=== PATIENT | female | born 1985 | race Asian ===

== ENCOUNTER 2017-05-06 10:15 | Emergency (ER) | payer OTHER ==
[~2017-05-06] VITALS: Ht 152.4 cm; Wt 50.0 kg
[2017-05-06 10:20] VITALS: BP 129/78; PULSE 74; RESP 18; TEMP 98.2; O2SAT 95
--- NOTE | 2017-05-06 12:47 | PD ---
HPI Chief Complaint: Cosmetician Problem/Complaint Time Seen by Provider: 12:44 Travel History International Travel<30 days: No Contact w/Intl Traveler<30days: No Traveled to known affect area: No History of Present Illness HPI 31-year-old female presents with history of endometriosis requiring surgery in 2013 with ongoing left lower quadrant pain with radiation into the left flank, as well as brown vaginal discharge for several weeks. Patient denies fever, chills, urinary symptoms, or changes in her bowels. Patient denies changes in sexual partners. She states this pain has been ongoing for some time. She states the discharge is been going on for some time. She states her last menstrual period ended on April 22. She states she is not . Pain is a 7 out of 10. She has no known drug allergies. Previously seen by Dr. Dwayne Braun, [employer], with similar complaints in March 2016. PFSH Past Medical History ?: Not LMP: 04/22/17 Social History Alcohol Use: No Tobacco Use: No Substance Use: No Allergies-Medications (Allergen,Severity, Reaction): Coded Allergies: No Known Allergies (Unverified Adverse Reaction, Unknown, 05/06/17) Reported Meds & Prescriptions Reported Meds & Active Scripts Active No Active Prescriptions or Reported Medications Review of Systems ROS Limitations: Poor Historian Except as stated in HPI: all other systems reviewed are Neg General / Constitutional: No: Fever Eyes: No: Visual changes HENT: No: Headaches Cardiovascular: No: Chest Pain or Discomfort Respiratory: No: Shortness of Breath Gastrointestinal: No: Abdominal Pain Genitourinary: Positive: Pelvic Pain, Flank Pain, Discharge, No: Urgency, Frequency, Dysuria, Vaginal Bleeding Musculoskeletal: No: Pain Skin: No Rash Neurologic: No: Weakness Psychiatric: No: Depression Endocrine: No: Polydipsia Hematologic/Lymphatic: No: Easy Bruising Physical Exam Narrative GENERAL: Patient ambulatory to the room without difficulty. She appears in no acute distress. SKIN: Warm and dry. Normal color. Normal turgor. HEAD: Atraumatic. Normocephalic. EYES: Pupils equal and round. No scleral icterus. No injection or drainage. ENT: No nasal bleeding or discharge. Mucous membranes pink and moist. NECK: Trachea midline. No JVD. CARDIOVASCULAR: Regular rate and rhythm. RESPIRATORY: No accessory muscle use. Clear to auscultation. Breath sounds equal bilaterally. GASTROINTESTINAL: Abdomen soft, non-tender, nondistended. Hepatic and splenic margins not palpable. PELVIC: Pelvic exam performed with nursing stock puller shows normal-appearing vagina without rash or lesion. There is a small amount of yellowish discharge noted in the vault. Cervix appeared normal without friability or lesion. Patient discomfort with palpation of the left suprapubic area, without palpable mass. Wet prep was sent to the lab. MUSCULOSKELETAL: Extremities without clubbing, cyanosis, or edema. No obvious deformities. NEUROLOGICAL: Awake and alert. No obvious cranial nerve deficits. Motor grossly within normal limits. Five out of 5 muscle strength in the arms and legs. Normal speech. PSYCHIATRIC: Appropriate mood and affect; insight and judgment normal. Data Data Last Documented VS Vital Signs Date Time Temp Pulse Resp B/P (MAP) Pulse Ox O2 Delivery O2 Flow Rate FiO2 05/06/17 13:13 98.5 63 17 110/60 (77) 100 Room Air Orders Orders Complete Blood Count With Diff (05/06/17 12:47) Comprehensive Metabolic Panel (05/06/17 12:47) Gc And Chlamydia Pcr (05/06/17 12:47) Wet Prep Profile (05/06/17 12:47) Urinalysis - C+S If Indicated (05/06/17 12:47) Ed Urine Pregnancytest Poc (05/06/17 13:08) Us Pelvis Comp Cosmetician/Non-Preg (05/06/17 13:48) Labs Laboratory Tests Test 05/06/17 13:15 05/06/17 13:30 05/06/17 13:45 White Blood Count 7.1 TH/MM3 Red Blood Count 4.75 MIL/MM3 Hemoglobin 11.8 GM/DL Hematocrit 36.3 % Mean Corpuscular Volume 76.5 FL Mean Corpuscular Hemoglobin 24.9 PG Mean Corpuscular Hemoglobin Concent 32.5 % Red Cell Distribution Width 15.6 % Platelet Count 290 TH/MM3 Mean Platelet Volume 8.6 FL Neutrophils (%) (Auto) 57.6 % Lymphocytes (%) (Auto) 29.4 % Monocytes (%) (Auto) 9.0 % Eosinophils (%) (Auto) 3.0 % Basophils (%) (Auto) 1.0 % Neutrophils # (Auto) 4.1 TH/MM3 Lymphocytes # (Auto) 2.1 TH/MM3 Monocytes # (Auto) 0.6 TH/MM3 Eosinophils # (Auto) 0.2 TH/MM3 Basophils # (Auto) 0.1 TH/MM3 CBC Comment DIFF FINAL Differential Comment Blood Urea Nitrogen 10 MG/DL Creatinine 0.90 MG/DL Random Glucose 81 MG/DL Total Protein 7.8 GM/DL Albumin 3.8 GM/DL Calcium Level 8.7 MG/DL Alkaline Phosphatase 60 U/L Aspartate Amino Transf (AST/SGOT) 11 U/L Alanine Aminotransferase (ALT/SGPT) 15 U/L Total Bilirubin 0.5 MG/DL Sodium Level 138 MEQ/L Potassium Level 3.4 MEQ/L Chloride Level 105 MEQ/L Carbon Dioxide Level 25.6 MEQ/L Anion Gap 7 MEQ/L Estimat Glomerular Filtration Rate 74 ML/MIN Urine Color LIGHT-YELLOW Urine Turbidity CLEAR Urine pH 5.5 Urine Specific [place] 1.009 Urine Protein NEG mg/dL Urine Glucose (UA) NEG mg/dL Urine Ketones NEG mg/dL Urine Occult Blood SMALL Urine Nitrite NEG Urine Bilirubin NEG Urine Urobilinogen LESS THAN 2.0 MG/DL Urine Leukocyte Esterase LARGE Urine RBC 3 /hpf Urine WBC 6 /hpf Urine Squamous Epithelial Cells 2 /hpf Urine Bacteria RARE /hpf Microscopic Urinalysis Comment CULT NOT INDICATED Clue Cells (Wet Prep) NONE SEEN Vaginal Trichomonas (Wet Prep) NONE SEEN Vaginal Yeast (Wet Prep) NONE SEEN MDM Medical Decision Making Medical Screen Exam Complete: Yes Emergency Medical Condition: Yes Medical Record Reviewed: Yes Differential Diagnosis Left lower abdominal pain. Ovarian cyst. Endometriosis. STD. . Narrative Course Patient appears medically stable. Labs ordered including urinalysis, urine , wet prep, and urine GC chlamydia. Pelvic is performed wet prep sent to the lab. Pelvic ultrasound is ordered to evaluate endometriosis. Urine is negative. Urinalysis is normal. Wet prep is negative GC and Chlamydia are pending. Pelvic ultrasound showed: Right ovarian cyst Presumed 3 cm left endometrioma. Based on my history and physical, as well as the current lab results, I do not feel an infectious process is causing the patient's complaints Patient will be treated for her endometriosis with ibuprofen 800 mg 3 times daily with food. Recommend the patient follow-up with the [facility]'s center for further evaluation and treatment as needed. GC and Chlamydia are pending. Patient can return with worsening symptoms as needed. Diagnosis Primary Impression: Endometriosis Additional Impression: Ovarian cyst Qualified Codes: N83.201 - Unspecified ovarian cyst, right side Referrals: [facility] Patient Instructions: Endometriosis (ED), General Instructions, Ovarian Cyst ( ED) Additional Instructions: Urine is negative. Urinalysis is normal. Wet prep is negative GC and Chlamydia are pending. Pelvic ultrasound showed: Right ovarian cyst Presumed 3 cm left endometrioma. Based on my history and physical, as well as the current lab results, I do not feel an infectious process is causing the patient's complaints Patient will be treated for her endometriosis with ibuprofen 800 mg 3 times daily with food. Recommend the patient follow-up with the [facility] for further evaluation and treatment as needed. GC and Chlamydia are pending. Patient can return with worsening symptoms as needed. Med/Other Pt SpecificInfo: Prescription(s) given Scripts Ibuprofen (Ibuprofen) 800 Mg Tab 800 MG PO Q8H Y for Pain/Inflammation, #60 TAB 0 Refills Prov: Melchor Bojorquez MD 05/06/17 Disposition: 01 DISCHARGE HOME Condition: Stable Kirill Galvez May 06, 2017 12:47
[2017-05-06 13:13] VITALS: BP 110/60; PULSE 63; RESP 17; TEMP 98.5; O2SAT 100
[2017-05-06 14:00] LABS: AUTOMATED NEUTROPHIL # 4.1 TH/MM3 (1.8-7.7); BASOPHIL # 0.1 TH/MM3 (0-0.2); EOSINOPHIL # 0.2 TH/MM3 (0-0.4); HEMATOCRIT 36.3 % (35.0-46.0); HEMOGLOBIN 11.8 GM/DL (11.6-15.3); LYMPH % 29.4 % (9.0-44.0); LYMPHOCYTE # 2.1 TH/MM3 (1.0-4.8); MEAN CELL VOLUME 76.5 FL (80.0-100.0); MEAN CORPUSCULAR HEMOGLOBIN 24.9 PG (27.0-34.0); MEAN CORPUSCULAR HGB CONC 32.5 % (32.0-36.0); MEAN PLATELET VOLUME 8.6 FL (7.0-11.0); MONOCYTE # 0.6 TH/MM3 (0-0.9); NEUT % 57.6 % (16.0-70.0); PLATELET COUNT 290 TH/MM3 (150-450); RED BLOOD COUNT 4.75 MIL/MM3 (4.00-5.30); RED CELL DISTRIBUTION WIDTH 15.6 % (11.6-17.2); WHITE BLOOD COUNT 7.1 TH/MM3 (4.0-11.0)
[2017-05-06 14:00] LABS: BACTERIA, URINE RARE /hpf; BILIRUBIN, URINE NEG (NEG); BLOOD, URINE SMALL (NEG); GLUCOSE,URINE NEG (NEG); KETONE, URINE NEG (NEG); NITRITE,URINE NEG (NEG); PH, URINE 5.5 (5.0-8.5); SQUAMOUS EPITHELIAL CELL URINE 2 /hpf (0-5); URINE COLOR LIGHT-YELLOW (YELLW/STRAW); URINE LEUKOCYTE ESTERASE LARGE (NEG)
[2017-05-06 14:25] LABS: ALBUMIN 3.8 GM/DL (3.4-5.0); BICARBONATE 25.6 MEQ/L (21.0-32.0); BLOOD UREA NITROGEN 10 MG/DL (7-18); CALCIUM 8.7 MG/DL (8.5-10.1); CHLORIDE 105 MEQ/L (98-107); GLOMERULAR FILTRATION RATE 74 ML/MIN (>89); GLUCOSE,RANDOM 81 MG/DL (74-106); SODIUM (NA) 138 MEQ/L (136-145)
[2017-05-06 14:26] LABS: ALT (GPT) 15 U/L (10-53); AST (GOT) 11 U/L (15-37)
[2017-05-06 14:28] LABS: ALKALINE PHOSPHATASE 60 U/L (45-117); TOTAL BILIRUBIN ADULT 0.5 MG/DL (0.2-1.0); TOTAL PROTEIN 7.8 GM/DL (6.4-8.2)
--- NOTE | 2017-05-06 15:42 | RADRPT ---
EXAM DATE/TIME: 05/06/2017 14:55 [facility] COMPARISON: No previous studies available for comparison. INDICATIONS : Left lower quadrant abdominal pain with radiation to left flank. MEDICAL HISTORY : Endometriosis. SURGICAL HISTORY : Surgery for endometriosis. ENCOUNTER: Initial ACUITY: 1 day PAIN SCORE: 7/10 LOCATION: Left lower quadrant abdomen. MEASUREMENTS: UTERUS: 9.7 x 5.4 x 6.5 cm ENDOMETRIAL STRIPE: Non visualized RIGHT OVARY: 3.4 x 2.4 x 3.0 cm LEFT OVARY: 3.6 x 1.9 x 2.6 cm FINDINGS: UTERUS: The myometrium has homogeneous echotexture without mass. RIGHT OVARY: 2.6 cm cystic mass. LEFT OVARY: Complex 3 cm area left ovary that could be endometrioma as questioned. MISCELLANEOUS: No free fluid. CONCLUSION: Right ovarian cyst Presumed 3 cm left endometrioma. Casey Downs MD FACR on May 06, 2017 at 15:38 Board Certified Radiologist. This report was verified electronically.
[2017-05-06] MEDS ORDERED: IBUP1TAB7 PO (15:52)
== END 2017-05-06 16:05 | disposition home or self-care (01) ==
LOC: NEPD 10:15
DX: N80.9 Endometriosis, unspecified (principal); N83.201 Unspecified ovarian cyst, right side
CPT/HCPCS: 76856; 80053; 81001; 84703; 85025; 87210; 87491; 87591; 99284